=== PATIENT | female | born 1990 | race Hispanic/Latino ===

== ENCOUNTER 2024-01-09 05:26 | Inpatient (IN) | payer BC ==
[2024-01-08 13:18] LABS: Hematocrit 37.3 % (34.9-44.5); Hemoglobin 12.5 g/dL (12.0-15.5); Platelet Count 188 10x3/uL (150-450)
[2024-01-08 13:54] LABS: HBsAg Index 0.18 S/CO (0-0.99); Hep B Surf Ag Non-Reactive S/CO (NonReactive)
[2024-01-08 13:55] LABS: Syphilis Antibody Nonreactive (Nonreactive); Syphilis Antibody Index 0.06 S/CO (<1.00 Non-Reactive)
[2024-01-09] MEDS: Lactated Ringer's 1,000 ML IV SCH (06:30)
[2024-01-09 06:41] VITALS: BMI 41.1
[2024-01-09] MEDS ORDERED: Bicitra 30 ML UDCUP PO PRN (07:06)
[2024-01-09] MEDS ORDERED: Promethazine HCl 25 MG/ML VIAL IM PRN ×2 (07:06→08:44)
[2024-01-09] MEDS ORDERED: Famotidine/PF 20 mg/2ml Vial SLOW IVP PRN (07:06)
[2024-01-09] MEDS ORDERED: Oxytocin 30 units/NS 500 ML 500 ML IV SCH ×2 (07:06→13:30)
[2024-01-09] MEDS ORDERED: hydrALAZINE 20 MG/ML VIAL SLOW IVP PRN ×2 (07:06→12:01)
[2024-01-09] MEDS ORDERED: Ondansetron PF 4 MG/2 ML Vial IVP PRN ×3 (07:06→12:01)
[2024-01-09] MEDS: CEFAZOLIN 2 GM in Sodium Chloride 0.9% 100 ML IVPB SCH (07:31)
[2024-01-09] MEDS ORDERED: Naloxone HCl 0.4 mg/ml Vial IVP PRN ×2 (08:44)
[2024-01-09] MEDS ORDERED: diphenhydrAMINE 50 MG/ML VIAL IVP PRN (08:44)
[2024-01-09] MEDS ORDERED: Naloxone HCl 0.4 mg/ml Vial IV PRN (08:44)
[2024-01-09] MEDS ORDERED: Moisturizing Cream (Eucerin) 113 GM JAR TOP PRN (08:44)
[2024-01-09] MEDS ORDERED: Meperidine HCl/PF 25 MG (1 mL) VIAL SLOW IVP PRN (08:44)
[2024-01-09] MEDS ORDERED: fentaNYL 50 mcg/mL 1 mL Vial SLOW IVP PRN (08:44)
[2024-01-09] MEDS ORDERED: Communication Order-Pharmacy FS SCH (08:45)
[2024-01-09] MEDS: ePHEDrine Sulfate 50 MG/10 ML VIAL ONE ×2 (10:35→10:40)
[2024-01-09] MEDS: Morphine PF 10 MG/10 ML VIAL ONE (10:38)
[2024-01-09] MEDS: Dexmedetomidine 200 MCG/2 ML VIAL ONE (10:38)
[2024-01-09] MEDS: Phytonadione Neonatal 1 MG/0.5 ML AMP ONE (10:39)
[2024-01-09] MEDS: Ondansetron PF 4 MG/2 ML Vial ONE (10:39)
[2024-01-09] MEDS: Oxytocin 10 UNITS/ML VIAL ONE (10:39)
[2024-01-09] MEDS: PHENYLEPHRINE-NS 100 MCG/ML 10 ML SYRINGE ONE (10:39)
[2024-01-09] MEDS: Erythromycin Base 0.5% Oint 1 GM TUBE ONE (10:39)
[2024-01-09] MEDS: Hepatitis B Vaccine 10 MCG/0.5 ML SYR ONE (10:39)
[2024-01-09] MEDS: Ketorolac Tromethamine 30 MG (1 mL) VIAL ONE (10:40)
[2024-01-09] MEDS: Phenylephrine 40 MG/NS 250 ML 250 ML ONE (10:40)
[2024-01-09] MEDS ORDERED: Boostrix 0.5 ML (Tdap) VIAL (>/=7 yrs of age) IM ONE (12:01)
[2024-01-09] MEDS ORDERED: Lanolin Ointment 7 GM TUBE TOP PRN (12:01)
[2024-01-09] MEDS ORDERED: Bisacodyl 10 MG SUPP PR PRN (12:01)
[2024-01-09] MEDS ORDERED: Acetaminophen 325 MG TAB PO PRN (12:01)
[2024-01-09] MEDS: ePHEDrine Sulfate 50 MG/10 ML VIAL SLOW IVP SCH (12:05)
[2024-01-09] MEDS ORDERED: diphenhydrAMINE 25 MG CAP PO PRN (13:00)
[2024-01-09] MEDS: Docusate 100 MG CAP PO SCH ×2 (13:08→21:15)
[2024-01-09] MEDS: Prenatal Vitamin 1 TAB PO SCH (13:09)
[2024-01-09] MEDS: Ferrous Sulfate 325 MG TAB PO SCH ×2 (13:09→21:47)
[2024-01-09] MEDS: Ondansetron PF 4 MG/2 ML Vial IVP PRN (13:10)
[2024-01-09] MEDS ORDERED: Ketorolac Tromethamine 30 MG (1 mL) VIAL IVP SCH (14:30)
[2024-01-09] MEDS: Ketorolac Tromethamine 30 MG (1 mL) VIAL IVP PRN (14:52)
[2024-01-09] MEDS ORDERED: Zolpidem Tartrate 5 MG TAB PO PRN (21:00)
[2024-01-09] MEDS ORDERED: HYDROcodone/Acetaminophen 5/325 mg Tablet PO PRN (21:00)
[2024-01-09] MEDS: Simethicone Chewable 80 MG TAB PO PRN (21:19)
[2024-01-10 05:30] LABS: Hematocrit 34.5 % (34.9-44.5); Hemoglobin 11.4 g/dL (12.0-15.5); Mean Corpuscular Hemoglobin 30.2 pg (27.0-33.0); Mean Corpuscular Volume 91.3 fL (81.6-98.3); Platelet Count 168 10x3/uL (150-450); RBC Distribution Width 14.6 % (11.5-14.5); Red Blood Cell (RBC) Count 3.78 10x6/uL (3.90-5.03); White Blood Cell (WBC) Count 8.9 10x3/uL (3.5-10.5)
[2024-01-10] MEDS: HYDROcodone/Acetaminophen 5/325 mg Tablet PO PRN (08:19)
[2024-01-10] MEDS: Prenatal Vitamin 1 TAB PO SCH (08:19)
[2024-01-10] MEDS: Ibuprofen 800 MG TAB PO SCH (13:50)
[2024-01-11 07:59] VITALS: BP 114/61; TEMP 98.2
[2024-01-11] MEDS: Measles/Mumps/Rubella 10 MCG/0.5 ML VIAL SC ONE (09:55)
== END 2024-01-11 12:35 | disposition home or self-care (01) | DRG 785 ==
LOC: CSHLD 05:26 → CSHPP 11:50
PROVIDERS: ADMIT Obstetrics & Gynecology; ATTEND Obstetrics & Gynecology
PROC: 10D00Z1 Extraction of Products of Conception, Low, Open Approach (ICD-10-PCS; principal; 2024-01-09)
PROC: 0UB70ZZ Excision of Bilateral Fallopian Tubes, Open Approach (ICD-10-PCS; 2024-01-09)
DX: O34.211 Maternal care for low transverse scar from previous cesarean delivery (principal); Z88.8 Allergy status to other drugs, medicaments and biological substances; Z3A.40 40 weeks gestation of pregnancy; Z37.0 Single live birth; O48.0 Post-term pregnancy; O69.81X0 Labor and delivery complicated by cord around neck, without compression, not applicable or unspecified
CPT/HCPCS: 36415; 51702; 85014; 85018; 85027; 85049; 86780; 86850; 86900; 86901; 87340; 88302; 90707; J1885; J2274; J2405; J2590; J7120